=== PATIENT | female | born 1990 | race Caucasian/White ===

== ENCOUNTER 2016-08-02 21:44 | Emergency (ER) | payer OTHER ==
[2016-08-02 21:55] VITALS: BP 116/76; TEMP 97.1; BMI 20.1
[2016-08-02] MEDS ORDERED: SODIUM CHLORIDE 1,000 ML IV STA (21:55)
[2016-08-02] MEDS ORDERED: STADOL IVP STA (21:55)
[2016-08-02] MEDS ORDERED: ZOFRAN 4 MG/2 ML IVP STA (21:55)
[2016-08-02 22:05] LABS: BASOPHILS # (AUTO) 0.1 K/uL (0-0.2); BASOPHILS % (AUTO) 1.2 % (0.0-3.0); EOSINOPHILS # (AUTO) 0.4 K/ul (0.0-0.7); EOSINOPHILS % (AUTO) 6.4 % (0.0-7.0); HEMATOCRIT 43.4 % (37.0-47.0); HEMOGLOBIN 14.1 g/dl (12.0-16.0); IMMATURE GRANULOCYTE % (AUTO) 0.2 % (0.0-5.0); LYMPHOCYTES # (AUTO) 2.6 K/uL (0.60-3.4); LYMPHOCYTES % (AUTO) 43.9 (10.0-50.0); MEAN CORPUSCULAR HEMOGLOBIN 29.1 pg (27.0-31.0); MEAN CORPUSCULAR HGB CONC 32.5 (31.8-35.4); MEAN CORPUSCULAR VOLUME 89.5 fl (81.0-99.0); MONOCYTES # (AUTO) 0.6 K/uL (0.4-2.0); MONOCYTES % (AUTO) 9.5 (0-10); NEUTROPHILS # (AUTO) 2.3 K/ul (2.0-6.9); NEUTROPHILS % (AUTO) 38.8; PLATELET COUNT 150 10^3/uL (140-440); RED BLOOD COUNT 4.85 10^6/ul (4.20-5.40)
[2016-08-02 22:09] LABS: BILIRUBIN,URINE Negative (NEGATIVE); KETONES,URINE Negative (NEGATIVE); LEUKOCYTE ESTERASE ,URINE Negative (NEGATIVE); NITRITE,URINE Negative (NEGATIVE); PH,URINE 6.5 (5-9); PROTEIN,URINE Negative (NEGATIVE); URINE, BLOOD Negative (NEGATIVE)
[2016-08-02 22:12] LABS: ADD URINE MICROSCOPIC NO
[2016-08-02 22:13] LABS: URINE PREGNANCY INTERNAL QC INTERNAL QC VALID
[2016-08-02 22:22] LABS: FLU INTERNAL QC INTERNAL QC VALID; RAPID FLU A NEGATIVE (NEGATIVE); RAPID FLU B NEGATIVE (NEGATIVE)
[2016-08-02 22:26] LABS: ALBUMIN/GLOBULIN RATIO 1.29; ANION GAP 12.4; BILIRUBIN,TOTAL 0.3 mg/dL (0.00-1.20); BUN/CREATININE RATIO 20.54; CALCIUM 9.2 mg/dL (8.2-10.2); CREATININE 0.73 mg/dL (0.60-1.30); POTASSIUM 4.4 mmol/L (3.5-5.10); TOTAL PROTEIN 7.1 g/dL (6.4-8.2)
--- NOTE | 2016-08-02 22:55 | CT ---
EXAM: CT scan abdomen pelvis without contrast HISTORY: Vomiting weakness COMPARISON: None. FINDINGS: Contiguous axial images were obtained from lung bases to the symphysis pubis without cont rast utilizing 3-mm collimation. Sagittal and coronal reconstructions were imaged and reviewed.. V isualized lung bases are clear. The gallbladder is fluid filled without cholelithiasis. The liver, pancreas, spleen and adrenal glands have normal unenhanced CT appearance. The kidneys are morpholo gically normal. The abdominal aorta is normal in course and caliber. There is a small amount free f luid in the dependent pelvis . There is a normal-appearing bladder.. There is no CT evidence of ap pendicitis.. Review of bone windows reveals no evidence of lytic or blastic lesions. IMPRESSION: No acute intra-abdominal findings. Small amount free fluid dependent pelvis. No CT evidence of appendicitis.
--- NOTE | 2016-08-02 23:46 | ED.PDOC ---
General ED Provider: Dr. DANISH LARA-ER Chief Complaint: Nausea/Vomiting Stated Complaint: im throwing up and having diarrhea Time Seen by Physician: 21:50 Mode of Arrival: Walk-In Information Source: Patient Exam Limitations: No limitations Primary Care Provider: COURTNEY ANTONIOPENN [facility] Nursing and Triage Documentation Reviewed and Agree: Yes GI Complaint Exam - Vomiting/Diarrhea Complaint/Exam Onset/Duration: less than 24hrs Symptoms Are: Still present Episodes of Vomiting over last 24 Hours: 4 Episodes of Diarrhea Over Last 24 Hours: 3 Initial Severity: Mild Current Severity: Mild Character of Vomiting: Reports: Non-bilious Character of Diarrhea: Reports: Watery Aggravating: Reports: None Alleviating: Reports: None Associated Signs and Symptoms: Denies: Dizziness, Light-headedness, Melena, Hematemesis, Fever, Abdominal pain, Cramping Use of Oral Contraceptives: No Use of Depoprovera: No Compliant With Contraceptive Use: No Non-GI Risk Factors: Reports: None Surgical Obstruction Risk Factors: Reports: None Related Surgical History: Reports: None Abdominal Findings: Present: None Kussmaul Respirations Present: No Differential Diagnoses: Dehydration, Viral Gastroenteritis Review of Systems - Review Of Systems Constitutional: Reports: No symptoms Eyes: Reports: No symptoms Ears, Nose, Mouth, Throat: Reports: No symptoms Respiratory: Reports: No symptoms Cardiac: Reports: No symptoms GI: Reports: Diarrhea, Nausea, Vomiting : Reports: No symptoms Musculoskeletal: Reports: No symptoms Skin: Reports: No symptoms Neurological: Reports: No symptoms Endocrine: Reports: No symptoms Hematologic/Lymphatic: Reports: No symptoms All Other Systems: Reviewed and Negative Past Medical History - Past Medical History Endocrine: Reports: Unknown Cardiovascular: Reports: Unknown Respiratory: Reports: Unknown Hematological: Reports: Unknown Gastrointestinal: Reports: Unknown Genitourinary: Reports: Unknown Neuro/Psych: Reports: Unknown Musculoskeletal: Reports: Unknown Cancer: Reports: Unknown Last Menstrual Period: 06/17/16 on depo - Surgical History General Surgical History: Reports: Unknown - Family History Family History: Reports: Unknown - Social History Smoking Status: Current every day smoker Hx Substance Use: No Alcohol Screening: Occasionally Lives: With family - Immunizations Tetanus Shot up to Date: Yes Physical Exam - Physical Exam Appearance: Well-appearing, No pain distress, Well-nourished Eyes: [place] ENT: Ears normal, Nose normal, Oropharynx normal Neck: Supple Respiratory: Airway patent Cardiovascular: RRR GI/: Soft, Nontender, No masses, Bowel sounds normal, No Organomegaly Musculoskeletal: Normal strength, ROM intact, No edema, No calf tenderness Skin: Warm, Dry, Normal color Neurological: Sensation intact, Motor intact, Reflexes intact, Cranial nerves intact, Alert, Oriented Psychiatric: Affect appropriate Interpretation - Radiology Interpretation Radiology Interpretation By: Radiologist Radiology Results: Negative Exam Interpreted: CT Scan Re-Evaluation - Re-Evaluation Time of Re-Evaluation: 23:46 Status: Improved Vital Signs Stable: Yes Pain Level: 0 Appearance: NAD Lungs: Clear Skin: Warm and Dry Neuro: Alert and Oriented X3 CV: RRR Critical Care Note - Critical Care Note Total Time (mins): 0 Course - Course Hematology/Chemistry: 08/02/16 22:03 08/02/16 22:03 Orders, Labs, Meds: Lab Review 08/02/16 08/02/16 21:54 22:03 WBC 5.90 RBC 4.85 Hgb 14.1 Hct 43.4 MCV 89.5 MCH 29.1 MCHC 32.5 RDW Coeff of Elle 11.9 Plt Count 150 Immature Gran % (Auto) 0.2 Neut % (Auto) 38.8 Lymph % (Auto) 43.9 [place] % (Auto) 9.5 Eos % (Auto) 6.4 Baso % (Auto) 1.2 Immature Gran # (Auto) 0.0 Neut # 2.3 Lymph # 2.6 [place] # 0.6 Eos # 0.4 Baso # 0.1 Sodium 138 Potassium 4.4 Chloride 106 Carbon Dioxide 24 Anion Gap 12.4 BUN 15 Creatinine 0.73 Estimated GFR (MDRD) 98.00 BUN/Creatinine Ratio 20.54 Glucose 91 Calcium 9.2 Total Bilirubin 0.30 AST 18 ALT 16 Alkaline Phosphatase 87 Total Protein 7.1 Albumin 4.0 Globulin 3.1 Albumin/Globulin Ratio 1.29 Amylase 70 Lipase 75 Urine Color Yellow Urine Clarity Clear Urine pH 6.5 Ur Specific [place] 1.020 Urine Protein Negative Urine Glucose (UA) Negative Urine Ketones Negative Urine Blood Negative Urine Nitrite Negative Urine Bilirubin Negative Urine Urobilinogen 0.2 Ur Leukocyte Esterase Negative Urine Test Negative Influenza A (Rapid) Negative Influenza B (Rapid) Negative Orders Category Date Time Status ED IV/MEDIPORT/POWERPORT .ONCE EMERGENCY 08/02/16 21:55 Active AMYLASE Stat LAB 08/02/16 22:03 Completed CBC W/ AUTO DIFF Stat LAB 08/02/16 22:03 Completed COMPREHENSIVE METABOLIC PANEL Stat LAB 08/02/16 22:03 Completed LIPASE Stat LAB 08/02/16 22:03 Completed MOLECULAR GROUP A STREP Stat LAB 08/02/16 21:55 Results RAPID FLU A/B Stat LAB 08/02/16 21:54 Completed STREP SCREEN Stat LAB 08/02/16 21:55 Results URINALYSIS C & S IF INDICATED Stat LAB 08/02/16 22:03 Completed URINE Stat LAB 08/02/16 22:03 Completed 0.9 % Sodium Chloride [Saline Flush] MEDS 08/02/16 21:55 Ordered 1 syr IVF PRN PRN Butorphanol Tartrate [Stadol] MEDS 08/02/16 21:55 Discontinued 2 mg IVP ONCE STA Ondansetron HCl/Pf [Zofran 4 mg/2 ml] MEDS 08/02/16 21:55 Discontinued 4 mg IVP ONCE STA Sodium Chloride 0.9% [Sodium Chloride] 1,000 ml MEDS 08/02/16 21:[address] ABDOMEN/PELVIS WO CONTRAST Stat RADS 08/02/16 21:56 Completed Medications Generic Name Dose Route Start Last Admin Trade Name Freq PRN Reason Stop Dose Admin Sodium Chloride 1,000 mls @ 500 mls/hr 08/02/16 21:55 08/02/16 22:13 Sodium Chloride IV 08/02/16 23:54 500 mls/hr BOLUS STA Administration Sodium Chloride 1 syr 08/02/16 21:55 08/02/16 22:13 Saline Flush IVF 1 syr PRN PRN Administration To flush IV Discontinued Medications Generic Name Dose Route Start Last Admin Trade Name Freq PRN Reason Stop Dose Admin Butorphanol Tartrate 2 mg 08/02/16 21:55 08/02/16 22:45 Stadol IVP 08/02/16 21:56 2 mg ONCE STA Administration Ondansetron HCl 4 mg 08/02/16 21:55 08/02/16 22:45 Zofran 4 Mg/2 Ml IVP 08/02/16 21:56 4 mg ONCE STA Administration Vital Signs: Temp Pulse Resp BP Pulse Ox 08/02/16 21:45 97.1 F L 72 20 116/76 96 Departure - Departure Time of Disposition: 23:46 Disposition: HOME SELF-CARE Discharge Problem: Enteritis Instructions: Enteritis (ED) Condition: Good Pt referred to PMD for follow-up: Yes Additional Instructions: zofran 4mg q 4hrs prn #4--clear liquids--recheck in 48hrs if not better Allergies/Adverse Reactions: Allergies No Known Allergies Allergy (Verified 12/07/13 15:58) Home Medications: Ambulatory Orders Medroxyprogesterone Acetate [Depo-Provera] 150 mg IM DIRECTED 05/16/14 Disposition Discussed With: Patient
== END 2016-08-02 23:50 | disposition home or self-care (01) ==
LOC: ED 21:44
DX: K52.9 Noninfective gastroenteritis and colitis, unspecified (principal); F17.210 Nicotine dependence, cigarettes, uncomplicated
CPT/HCPCS: 36415; 80053; 81001; 81025; 82150; 83690; 85025; 87651; 87804; 87880; 96361; 96374; 96375; 99284

== ENCOUNTER 2016-09-11 16:53 | Emergency (ER) ==
[2016-09-11 16:58] VITALS: BP 134/82; TEMP 98.8; BMI 20.9
[2016-09-11] MEDS ORDERED: TYLENOL PO STA (17:12)
[2016-09-11] MEDS ORDERED: ZOFRAN ODT PO STA (17:12)
--- NOTE | 2016-09-11 17:19 | ED.PDOC ---
General ED Provider: Dr. RICCI SAN Chief Complaint: Respiratory Complaint Stated Complaint: patient c/o chills and bodyaches. states she has had a cough and nasal congestion. states a little sore throat. also c/o nausea and diarrhea. states she needs an excuse for work. Time Seen by Physician: 17:17 Mode of Arrival: Walk-In Information Source: Patient Exam Limitations: No limitations Primary Care Provider: HARJIT DICKENS Nursing and Triage Documentation Reviewed and Agree: Yes Respiratory Complaint Exam - Respiratory Complaint/Exam Onset/Duration: 2 days Symptoms Are: Still present Timing: Constant Initial Severity: Moderate Current Severity: Moderate Location: Chest Character: Reports: Non-productive cough Aggravating: Reports: URI, Weather Associated Signs and Symptoms: Reports: Dyspnea, URI Related History: Reports: Seasonal allergies History of Healthcare-Acquired Pneumonia: No Related Surgical History: Reports: None Pulmonary Embolism Risk Factors: None Cardiac Risk Factors: Reports: None Pseudomonas Risk Factors: Reports: None Tuberculosis Risk Factors: Reports: None Status Asthmaticus Risk Factors: Reports: None Home Oxygen Use: No Recent Stress Test: No Recent Echo/LV Function: No Current Antibiotic Use: No Current Asthma Medication Use: No Respiratory Distress: Mild Inadequate Respiratory Effort: No Dysphagia Present: No Stridor Present: No JVD Present: No Accessory Muscle Use: No Retractions: Not Present Diminished Breath Sounds: No Sinus Tenderness: None Grunting Respirations: No Kussmaul Respirations: No Differential Diagnoses: URI Review of Systems - Review Of Systems Constitutional: Reports: Fever Eyes: Reports: No symptoms Ears, Nose, Mouth, Throat: Reports: Nose discharge Respiratory: Reports: Cough Cardiac: Reports: No symptoms GI: Reports: No symptoms : Reports: No symptoms Musculoskeletal: Reports: No symptoms Skin: Reports: No symptoms Neurological: Reports: No symptoms Endocrine: Reports: No symptoms Hematologic/Lymphatic: Reports: No symptoms All Other Systems: Reviewed and Negative Past Medical History - Past Medical History Endocrine: Reports: Unknown Cardiovascular: Reports: Unknown Respiratory: Reports: Unknown Hematological: Reports: Unknown Gastrointestinal: Reports: Unknown Genitourinary: Reports: Unknown Neuro/Psych: Reports: Unknown Musculoskeletal: Reports: Unknown Cancer: Reports: Unknown Last Menstrual Period: 2 days ago she finished - Surgical History General Surgical History: Reports: Unknown - Family History Family History: Reports: Unknown - Social History Smoking Status: Current every day smoker Hx Substance Use: No Alcohol Screening: Occasionally Physical Exam - Physical Exam Appearance: Ill-appearing, Thin Ill-appearing: Mild Eyes: [place], EOMI, Conjunctiva clear ENT: Ears normal Neck: Supple Respiratory: Airway patent, Breath sounds clear, Breath sounds equal, Respirations nonlabored Cardiovascular: RRR, Pulses normal, No rub Musculoskeletal: Normal strength Skin: Warm, Dry Neurological: Sensation intact Psychiatric: Anxious Critical Care Note - Critical Care Note Total Time (mins): 0 Course - Course Orders, Labs, Meds: Lab Review 09/11/16 17:20 Influenza A (Rapid) Negative Influenza B (Rapid) Negative Orders Category Date Time Status FLU A & B RAPID TEST [RAPID FLU A/B] Stat LAB 09/11/16 17:20 Completed MOLECULAR GROUP A STREP Stat LAB 09/11/16 17:20 Results STREP SCREEN Stat LAB 09/11/16 17:20 Results Acetaminophen [Tylenol] MEDS 09/11/16 17:12 Discontinued 1,000 mg PO ONCE STA Ondansetron [Zofran Odt] MEDS 09/11/16 17:12 Discontinued 4 mg PO ONCE STA Medications Discontinued Medications Generic Name Dose Route Start Last Admin Trade Name Freq PRN Reason Stop Dose Admin Acetaminophen 1,000 mg 09/11/16 17:12 09/11/16 17:17 Tylenol PO 09/11/16 17:13 1,000 mg ONCE STA Administration Ondansetron HCl 4 mg 09/11/16 17:12 09/11/16 17:17 Zofran Odt PO 09/11/16 17:13 4 mg ONCE STA Administration Vital Signs: Temp Pulse Resp BP Pulse Ox 09/11/16 16:53 98.8 F 89 16 134/82 98 Departure - Departure Time of Disposition: 17:45 Disposition: HOME SELF-CARE Discharge Problem: Viral syndrome Instructions: Viral Syndrome (ED) Condition: Stable Pt referred to PMD for follow-up: Yes Additional Instructions: Push fluids Alienate Tylenol with Motrin Take medications for Nausea Prescriptions: Ondansetron HCl [Zofran Tab] 4 mg PO Q8H PRN #14 tablet PRN Reason: Nausea / Vomiting Allergies/Adverse Reactions: Allergies No Known Allergies Allergy (Verified 09/11/16 16:56) Home Medications: Ambulatory Orders Medroxyprogesterone Acetate [Depo-Provera] 150 mg IM DIRECTED 05/16/14 Ondansetron HCl [Zofran Tab] 4 mg PO Q8H PRN #14 tablet 09/11/16 Disposition Discussed With: Patient
[2016-09-11 17:42] LABS: FLU INTERNAL QC INTERNAL QC VALID; RAPID FLU A NEGATIVE (NEGATIVE); RAPID FLU B NEGATIVE (NEGATIVE)
== END 2016-09-11 18:07 | disposition home or self-care (01) ==
LOC: ED 16:53
DX: B34.9 Viral infection, unspecified (principal); F17.210 Nicotine dependence, cigarettes, uncomplicated
CPT/HCPCS: 87651; 87804; 87880; 99283

== ENCOUNTER 2016-09-22 04:31 | Emergency (ER) ==
[2016-09-22 04:39] VITALS: BP 132/83; TEMP 99; BMI 19.3
[2016-09-22] MEDS ORDERED: IMITREX SUBCUT STA (05:24)
[2016-09-22] MEDS ORDERED: ZOFRAN ODT PO STA (05:24)
[2016-09-22] MEDS ORDERED: TORADOL IM STA (05:24)
--- NOTE | 2016-09-22 06:33 | ED.PDOC ---
General ED Provider: Dr. RICCI SAN Chief Complaint: Headache Stated Complaint: Patient is a 26 year old female who comes to the Er with Migrane heaches for one day with nausea and light. These are similar symtoms to the past. Time Seen by Physician: 04:45 Mode of Arrival: Walk-In Information Source: Patient, Family Exam Limitations: No limitations Primary Care Provider: HARJIT DICKENS Nursing and Triage Documentation Reviewed and Agree: Yes Neurological Complaint Exam - Headache Complaint/Exam Onset: Sudden Duration: 1 days Symptoms Are: Still present Timing: Constant Initial Severity: Moderate Current Severity: Severe Location: Right, Left, Temporal Character: Reports: Throbbing, Typical headache Aggravating: Reports: Bright lights Alleviating: Reports: None Associated Signs and Symptoms: Reports: Nausea. Denies: Dizziness, Seizure, Vomiting, Sinus pressure, Fever, Neck pain, Neck stiffness, Decreased LOC, Visual changes Related History: Reports: Similar episode Related Surgical History: Reports: None SAH Risk Factors: Reports: None Meningitis Risk Factors: Reports: None SDH Risk Factors: Reports: None Temporal Arteritis Risk Factors: Reports: None Normal Head CT Within Last 12 Months: Yes Papilledema Present: No Temporal Artery Tenderness: Present: None Sinus Tenderness: Present: None TMJ Tenderness: Present: None Glascow Coma Scale (see protocol): 15 Meningeal Signs Positive: No Pain on Passive Flexion-Positive Kernig's: Yes ROM Limited In: No Limitiations Focal Weakness: Present: None Focal Sensory Loss: Present: None Gait: Normal Nystagmus Present: No Gag Reflex Present: No [id number]: Normal Findings Romberg Test Positive: No Babinski Sign: Negative Right, Negative Left Head Picture: 1 - headache Differential Diagnoses: Migraine, Tension Headache Review of Systems - Review Of Systems Constitutional: Reports: No symptoms Eyes: Reports: Photophobia GI: Reports: Nausea, Poor appetite Neurological: Reports: Headache All Other Systems: Reviewed and Negative Past Medical History - Past Medical History Endocrine: Reports: None Cardiovascular: Reports: None Respiratory: Reports: None Hematological: Reports: None Gastrointestinal: Reports: None Genitourinary: Reports: None Neuro/Psych: Reports: Migraine Musculoskeletal: Reports: None Cancer: Reports: None Last Menstrual Period: 2 WEEKS AGO - Surgical History General Surgical History: Reports: None - Family History Family History: Reports: None - Social History Smoking Status: Current every day smoker, Heavy tobacco smoker Hx Substance Use: No Alcohol Screening: None - Immunizations Tetanus Shot up to Date: Yes Physical Exam - Physical Exam Appearance: Well-appearing, No pain distress, Well-nourished Ill-appearing: Mild Pain Distress: Mild Eyes: [place], EOMI, Conjunctiva clear ENT: Ears normal, Nose normal, Oropharynx normal Neck: Supple Respiratory: Airway patent, Breath sounds clear, Breath sounds equal, Respirations nonlabored Cardiovascular: RRR, Pulses normal, No rub, No murmur GI/: Soft, Nontender, No masses, Bowel sounds normal, No Organomegaly Musculoskeletal: Normal strength, ROM intact, No edema, No calf tenderness Skin: Warm, Dry, Normal color Neurological: Sensation intact, Motor intact, Reflexes intact, Cranial nerves intact, Alert, Oriented Psychiatric: Affect appropriate, Mood appropriate Re-Evaluation - Re-Evaluation Time of Re-Evaluation: 06:30 Status: Improved Critical Care Note - Critical Care Note Total Time (mins): 0 Course - Course Orders, Labs, Meds: Orders Category Date Time Status Ketorolac Tromethamine [Toradol] MEDS 09/22/16 05:24 Discontinued 60 mg IM ONCE STA Ondansetron [Zofran Odt] MEDS 09/22/16 05:24 Discontinued 4 mg PO ONCE STA Sumatriptan Succinate [Imitrex] MEDS 09/22/16 05:24 Discontinued 6 mg SUBCUT ONCE STA Medications Discontinued Medications Generic Name Dose Route Start Last Admin Trade Name Freq PRN Reason Stop Dose Admin Ketorolac Tromethamine 60 mg 09/22/16 05:24 09/22/16 05:36 Toradol IM 09/22/16 05:25 60 mg ONCE STA Administration Ondansetron HCl 4 mg 09/22/16 05:24 09/22/16 05:29 Zofran Odt PO 09/22/16 05:25 4 mg ONCE STA Administration Sumatriptan Succinate 6 mg 09/22/16 05:24 09/22/16 05:33 Imitrex SUBCUT 09/22/16 05:25 6 mg ONCE STA Administration Vital Signs: Temp Pulse Resp BP Pulse Ox 09/22/16 04:31 99 F 63 18 132/83 98 Departure - Departure Time of Disposition: 06:30 Disposition: HOME SELF-CARE Discharge Problem: Headache Instructions: Migraine Headache (ED) Condition: Fair Pt referred to PMD for follow-up: Yes Additional Instructions: Take medications as prescribed Rest Follow up with PCP in 3 days. Prescriptions: Butalb/Acetaminophen/Caffeine [Fioricet] 1 each PO TID PRN #15 tablet PRN Reason: Migrane headache Allergies/Adverse Reactions: Allergies No Known Allergies Allergy (Verified 09/26/16 11:27) Home Medications: Ambulatory Orders Butalb/Acetaminophen/Caffeine [Fioricet] 1 each PO TID PRN #15 tablet 09/22/16 Disposition Discussed With: Patient, Family
== END 2016-09-22 06:37 | disposition home or self-care (01) ==
LOC: ED 04:31
DX: G43.909 Migraine, unspecified, not intractable, without status migrainosus (principal); F17.210 Nicotine dependence, cigarettes, uncomplicated
CPT/HCPCS: 96372; 99283

== ENCOUNTER 2016-09-24 15:29 | Outpatient (CLI) | payer OTHER ==
[2013-01-12 20:47] VITALS: TEMP 96.8
[2016-09-24 15:51] LABS: BASOPHILS # (AUTO) 0.1 K/uL (0-0.2); BASOPHILS % (AUTO) 0.6 % (0.0-3.0); EOSINOPHILS # (AUTO) 0.1 K/ul (0.0-0.7); EOSINOPHILS % (AUTO) 0.9 % (0.0-7.0); HEMATOCRIT 41.3 % (37.0-47.0); HEMOGLOBIN 14.5 g/dl (12.0-16.0); IMMATURE GRANULOCYTE % (AUTO) 0.4 % (0.0-5.0); LYMPHOCYTES # (AUTO) 1.4 K/uL (0.60-3.4); LYMPHOCYTES % (AUTO) 12.4 (10.0-50.0); MEAN CORPUSCULAR HEMOGLOBIN 29.9 pg (27.0-31.0); MEAN CORPUSCULAR HGB CONC 35.1 (31.8-35.4); MEAN CORPUSCULAR VOLUME 85.2 fl (81.0-99.0); MONOCYTES # (AUTO) 1.1 K/uL (0.4-2.0); MONOCYTES % (AUTO) 9.4 (0-10); NEUTROPHILS # (AUTO) 8.7 K/ul (2.0-6.9); NEUTROPHILS % (AUTO) 76.3; PLATELET COUNT 187 10^3/uL (140-440); RED BLOOD COUNT 4.85 10^6/ul (4.20-5.40)
[2016-09-24 16:08] LABS: ALBUMIN 4.2 g/dL (3.4-5.0); ALBUMIN/GLOBULIN RATIO 1.35; ANION GAP 14.1; BILIRUBIN,TOTAL 0.96 mg/dL (0.00-1.20); BUN/CREATININE RATIO 11.53; CALCIUM 9.2 mg/dL (8.2-10.2); CREATININE 1.3 mg/dL (0.60-1.30); POTASSIUM 4.1 mmol/L (3.5-5.10); TOTAL PROTEIN 7.3 g/dL (6.4-8.2)
[2016-09-24 16:13] LABS: BILIRUBIN,URINE Negative (NEGATIVE); KETONES,URINE Negative (NEGATIVE); LEUKOCYTE ESTERASE ,URINE Negative (NEGATIVE); NITRITE,URINE Negative (NEGATIVE); PROTEIN,URINE 3+ (NEGATIVE); URINE, BLOOD Trace-intact (NEGATIVE)
[2016-09-24 16:14] LABS: ADD URINE MICROSCOPIC YES
--- NOTE | 2016-09-24 16:16 | DI ---
EXAM: Single view the abdomen. History: Nausea and vomiting. Findings: Nonspecific but nonobstructive bowel gas pattern. No free intraperitoneal air. Moderate scattered colonic stool. No acute osseous abnormalities. Facet hypertrophy within the lower lumbar spine. Impression: No acute radiographic findings within the abdomen. Moderate colonic stool.
== END 2016-09-24 15:30 | disposition home or self-care (01) ==
LOC: LAB 15:29
PROVIDERS: ATTEND Nurse Practitioner Family
DX: R11.2 Nausea with vomiting, unspecified (principal); K59.00 Constipation, unspecified
CPT/HCPCS: 36415; 80053; 81001; 82150; 83690; 85025

== ENCOUNTER 2016-09-26 11:22 | Emergency (ER) | payer OTHER ==
[2016-09-26 11:22] VITALS: BMI 19.3
[2016-09-26 11:29] VITALS: BP 124/84; TEMP 97.5
[2016-09-26 11:56] LABS: BASOPHILS # (AUTO) 0.1 K/uL (0-0.2); BASOPHILS % (AUTO) 0.7 % (0.0-3.0); EOSINOPHILS # (AUTO) 0.3 K/ul (0.0-0.7); EOSINOPHILS % (AUTO) 3.3 % (0.0-7.0); HEMATOCRIT 39.4 % (37.0-47.0); HEMOGLOBIN 13.7 g/dl (12.0-16.0); IMMATURE GRANULOCYTE % (AUTO) 0.2 % (0.0-5.0); LYMPHOCYTES # (AUTO) 1.7 K/uL (0.60-3.4); LYMPHOCYTES % (AUTO) 20.3 (10.0-50.0); MEAN CORPUSCULAR HEMOGLOBIN 29.5 pg (27.0-31.0); MEAN CORPUSCULAR HGB CONC 34.8 (31.8-35.4); MEAN CORPUSCULAR VOLUME 84.7 fl (81.0-99.0); MONOCYTES # (AUTO) 0.6 K/uL (0.4-2.0); MONOCYTES % (AUTO) 7.6 (0-10); NEUTROPHILS # (AUTO) 5.7 K/ul (2.0-6.9); NEUTROPHILS % (AUTO) 67.9; PLATELET COUNT 169 10^3/uL (140-440); RED BLOOD COUNT 4.65 10^6/ul (4.20-5.40); WHITE BLOOD COUNT 8.41 K/ul (4.6-10.2)
[2016-09-26 12:00] LABS: BILIRUBIN,URINE Negative (NEGATIVE); KETONES,URINE Negative (NEGATIVE); LEUKOCYTE ESTERASE ,URINE Negative (NEGATIVE); NITRITE,URINE Negative (NEGATIVE); PROTEIN,URINE 1+ (NEGATIVE); URINE, BLOOD Negative (NEGATIVE)
[2016-09-26 12:01] LABS: ADD URINE MICROSCOPIC YES
[2016-09-26 12:02] LABS: URINE PREGNANCY INTERNAL QC INTERNAL QC VALID
[2016-09-26 12:17] LABS: ALBUMIN 3.8 g/dL (3.4-5.0); ALBUMIN/GLOBULIN RATIO 1.19; ANION GAP 13.8; BILIRUBIN,TOTAL 0.38 mg/dL (0.00-1.20); BUN/CREATININE RATIO 11.65; CREATININE 1.63 mg/dL (0.60-1.30); POTASSIUM 3.8 mmol/L (3.5-5.10)
--- NOTE | 2016-09-26 12:20 | ED.PDOC ---
General ED Provider: Dr. HAWA ANDRADE Chief Complaint: Abdominal Pain Stated Complaint: abdominal pain Time Seen by Physician: 11:23 Mode of Arrival: Walk-In Information Source: Patient, Family Exam Limitations: No limitations Primary Care Provider: HARJIT DICKENS Nursing and Triage Documentation Reviewed and Agree: Yes GI Complaint Exam - Abdominal Pain Complaint/Exam Onset: Gradual Symptoms Are: Still present Timing: Constant Initial Severity: Moderate Current Severity: Moderate Character: Reports: Dull Aggravating: Reports: None Alleviating: Reports: None Associated Signs and Symptoms: Reports: Constipation. Denies: Diaphoresis, Fever, Cough, Chest pain, Dizziness, Back pain, Blood in stool, Dysuria, Urinary frequency, Decreased urine output, Decreased appetite, Vaginal bleeding , Vaginal discharge, Nausea, Vomiting, Diarrhea, Sore throat, Decreased activity AAA Risk Factors: Reports: None Cardiac Risk Factors: Reports: None Ectopic Risk Factors: Reports: None Ovarian Torsion Risk Factors: Reports: None Surgical Obstruction Risk Factors: Reports: None Related Surgical History: Reports: None Abdominal Findings: Present: None Review of Systems - Review Of Systems Constitutional: Reports: No symptoms Eyes: Reports: No symptoms Ears, Nose, Mouth, Throat: Reports: No symptoms Respiratory: Reports: No symptoms Cardiac: Reports: No symptoms GI: Reports: Abdominal pain, Constipated : Reports: No symptoms Musculoskeletal: Reports: No symptoms Skin: Reports: No symptoms Neurological: Reports: No symptoms Endocrine: Reports: No symptoms Hematologic/Lymphatic: Reports: No symptoms All Other Systems: Reviewed and Negative Past Medical History - Past Medical History Endocrine: Reports: Unknown Cardiovascular: Reports: Unknown Respiratory: Reports: Unknown Hematological: Reports: Unknown Gastrointestinal: Reports: Unknown Genitourinary: Reports: Unknown Neuro/Psych: Reports: Unknown Musculoskeletal: Reports: Unknown Cancer: Reports: Unknown Last Menstrual Period: LAST MONTH - Surgical History General Surgical History: Reports: Unknown - Family History Family History: Reports: Unknown - Social History Smoking Status: Current every day smoker, Heavy tobacco smoker Hx Substance Use: No Alcohol Screening: None Physical Exam - Physical Exam Appearance: Well-appearing, No pain distress, Well-nourished Eyes: [place], EOMI, Conjunctiva clear ENT: Ears normal, Nose normal, Oropharynx normal Respiratory: Airway patent, Breath sounds clear, Breath sounds equal, Respirations nonlabored Cardiovascular: RRR, Pulses normal, No rub, No murmur GI/: Soft, Nontender, No masses, Bowel sounds normal, No Organomegaly Musculoskeletal: Normal strength, ROM intact, No edema, No calf tenderness Skin: Warm, Dry, Normal color Neurological: Sensation intact, Motor intact, Reflexes intact, Cranial nerves intact, Alert, Oriented Psychiatric: Affect appropriate, Mood appropriate Interpretation - Radiology Interpretation Radiology Interpretation By: Radiologist Critical Care Note - Critical Care Note Total Time (mins): 0 Course - Course Hematology/Chemistry: 09/26/16 11:25 Orders, Labs, Meds: Lab Review 09/26/16 11:25 WBC 8.41 RBC 4.65 Hgb 13.7 Hct 39.4 MCV 84.7 MCH 29.5 MCHC 34.8 RDW Coeff of Elle 11.9 Plt Count 169 Immature Gran % (Auto) 0.2 Neut % (Auto) 67.9 Lymph % (Auto) 20.3 [place] % (Auto) 7.6 Eos % (Auto) 3.3 Baso % (Auto) 0.7 Immature Gran # (Auto) 0.0 Neut # 5.7 Lymph # 1.7 [place] # 0.6 Eos # 0.3 Baso # 0.1 Urine Color Yellow Urine Clarity Clear Urine pH 6.0 Ur Specific [place] 1.010 Urine Protein 1+ Urine Glucose (UA) Negative Urine Ketones Negative Urine Blood Negative Urine Nitrite Negative Urine Bilirubin Negative Urine Urobilinogen 0.2 Ur Leukocyte Esterase Negative Ur Squamous Epith Cells Not present Urine Mucus Trace Urine Test Negative Orders Category Date Time Status CBC W/ AUTO DIFF Stat LAB 09/26/16 11:25 Completed COMPREHENSIVE METABOLIC PANEL Stat LAB 09/26/16 11:25 Received URINALYSIS C & S IF INDICATED Stat LAB 09/26/16 11:25 Completed URINE Stat LAB 09/26/16 11:[address] ABDOMEN/PELVIS WO CONTRAST Stat RADS 09/26/16 11:31 Taken Vital Signs: Temp Pulse Resp BP Pulse Ox 09/26/16 11:22 97.5 F L 55 L 18 124/84 98 Departure - Departure Time of Disposition: 13:00 Disposition: HOME SELF-CARE Discharge Problem: Abdominal pain Constipation Qualifiers: Constipation type: unspecified constipation type Qualifier Code: (K59.00) Constipation, unspecified Proteinuria Qualifiers: Proteinuria type: unspecified Qualifier Code: (R80.9) Proteinuria, unspecified Instructions: Constipation (ED), Acute Abdominal Pain (ED), Abdominal Pain (ED) Condition: Good Pt referred to PMD for follow-up: No Additional Instructions: Please call your Family Physician as soon as possible to schedule a follow-up appointment.proteinuria discussed in detail Allergies/Adverse Reactions: Allergies No Known Allergies Allergy (Verified 09/26/16 11:27) Home Medications: Ambulatory Orders Butalb/Acetaminophen/Caffeine [Fioricet] 1 each PO TID PRN #15 tablet 09/22/16
--- NOTE | 2016-09-26 12:35 | CT ---
EXAM: CT abdomen pelvis without contrast HISTORY: Abdominal pain COMPARISON: 08/02/2016 TECHNIQUE: CT abdomen pelvis performed without intravenous contrast. Coronal and sagittal reformat reny images obtained. FINDINGS: Lung bases clear. No free air. No acute abnormalities of the bones. There is mild left bryant curvature thoracolumbar spine. Heart normal in size. Evaluation organ parenchyma limited with out contrast. Liver appears normal. Gallbladder appears normal. Pancreas appears normal. Spleen appears normal. Adrenals appear normal. No hydronephrosis or nephrolithiasis. No calculi visualiz ed in normal course of the ureters, noting ureters difficult to trace. Bladder unremarkable. Uteru s unremarkable. Small free fluid in the cul-de-sac. Aorta normal in caliber. Stomach appears norm al. No dilated loops small bowel. 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 Appendix appears normal. Mild fecal retention right a nd transverse colon. Possible prominent pelvic veins. IMPRESSION: 1. No acute inflammatory process identified in the abdomen pelvis. 2. Mild fecal retention right and transverse colon. 3. 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 4. Small free fluid in the cul-de-sac, nonspecific and may be physiologic. 5. Possible prominent pelvic veins, a questionable finding that can be seen in pelvic congestion sy ndrome.
== END 2016-09-26 14:19 | disposition home or self-care (01) ==
LOC: ED 11:22
DX: K59.00 Constipation, unspecified (principal); R80.9 Proteinuria, unspecified; F17.210 Nicotine dependence, cigarettes, uncomplicated
CPT/HCPCS: 36415; 80053; 81001; 81025; 85025; 87651; 87880; 99283

== ENCOUNTER 2016-09-27 14:05 | Outpatient (CLI) ==
[2013-01-12 20:47] VITALS: TEMP 96.8
[2016-09-26 11:22] VITALS: BMI 19.3
[2016-09-27 14:40] LABS: ALBUMIN 4.2 g/dL (3.4-5.0); ALBUMIN/GLOBULIN RATIO 1.27; ANION GAP 14.5; BILIRUBIN,TOTAL 0.46 mg/dL (0.00-1.20); BUN/CREATININE RATIO 8.88; CALCIUM 9.3 mg/dL (8.2-10.2); CREATININE 1.35 mg/dL (0.60-1.30); POTASSIUM 3.5 mmol/L (3.5-5.10); TOTAL PROTEIN 7.5 g/dL (6.4-8.2)
== END 2016-09-27 14:06 | disposition home or self-care (01) ==
LOC: LAB 14:05
PROVIDERS: ATTEND Nurse Practitioner Family
DX: R79.9 Abnormal finding of blood chemistry, unspecified (principal); R79.89 Other specified abnormal findings of blood chemistry; R94.4 Abnormal results of kidney function studies
CPT/HCPCS: 36415; 80053

== ENCOUNTER 2016-12-27 03:36 | Emergency (ER) | payer OTHER ==
[2016-12-27 03:36] VITALS: BMI 19.3
[2016-12-27 03:53] VITALS: BP 155/87; TEMP 100
--- NOTE | 2016-12-27 04:21 | ED.PDOC ---
General ED Provider: Dr. DANISH LARA-ER Chief Complaint: Cough Stated Complaint: my throat is sore and i am couging Time Seen by Physician: 04:19 Mode of Arrival: Walk-In Information Source: Patient Exam Limitations: No limitations [facility] T[facility] Documentation Reviewed and Agree: Yes EENT Complaint Exam - Throat Complaint/Exam Onset/Duration: 24hrs Initial Severity: Mild Current Severity: None Alleviating: Reports: None Associated Signs and Symptoms: Reports: Cough. Denies: Fever, Dysphagia, Drooling, Foreign body sensation, Chills, Wheezing, Hoarseness, Sinus discomfort , Nasal congestion, Difficulty breathing, Lethargy, Irritability, Decreased activity, Vomiting, Diarrhea, Decreased hearing, Ear drainage Uvula Midline: Yes Sania-tonsillar Fluctuence: No Scarlatinaform Rash Present: No Lesions: Present: Lip Exanthem: Present: Pharynx Stridor Present: No Sinus Tenderness Present: No Tonsillar Hypertrophy Present: No Tonsillar Exudate Present: No Sania-tonsillar Swelling Present: No Splenomegaly Present: No Review of Systems - Review Of Systems Constitutional: Reports: No symptoms Eyes: Reports: No symptoms Ears, Nose, Mouth, Throat: Reports: Throat pain Respiratory: Reports: Cough Cardiac: Reports: No symptoms GI: Reports: No symptoms : Reports: No symptoms Musculoskeletal: Reports: No symptoms Skin: Reports: No symptoms Neurological: Reports: No symptoms Endocrine: Reports: No symptoms Hematologic/Lymphatic: Reports: No symptoms All Other Systems: Reviewed and Negative Past Medical History - Past Medical History Previously Healthy: Yes Endocrine: Reports: Unknown Cardiovascular: Reports: Unknown Respiratory: Reports: Unknown Hematological: Reports: Unknown Gastrointestinal: Reports: Unknown Genitourinary: Reports: Unknown Neuro/Psych: Reports: Unknown Musculoskeletal: Reports: Unknown Cancer: Reports: Unknown Last Menstrual Period: 11/15/16 - Surgical History General Surgical History: Reports: Unknown - Family History Family History: Reports: Unknown - Social History Smoking Status: Current every day smoker, Heavy tobacco smoker Hx Substance Use: No Alcohol Screening: None Lives: With family - Immunizations Tetanus Shot up to Date: Yes Physical Exam - Physical Exam Appearance: Well-appearing, No pain distress, Well-nourished Eyes: [place], EOMI, Conjunctiva clear ENT: Ears normal, Nose normal, Erythema Neck: Supple Respiratory: Airway patent, Breath sounds clear, Breath sounds equal, Respirations nonlabored Cardiovascular: RRR, Pulses normal, No rub, No murmur GI/: Soft, Nontender, No masses, Bowel sounds normal, No Organomegaly Musculoskeletal: Normal strength, ROM intact, No edema, No calf tenderness Skin: Warm, Dry, Normal color Neurological: Sensation intact, Motor intact, Reflexes intact, Cranial nerves intact, Alert, Oriented Psychiatric: Affect appropriate, Mood appropriate Critical Care Note - Critical Care Note Total Time (mins): 0 Course - Course Orders, Labs, Meds: Orders Category Date Time Status MOLECULAR GROUP A STREP Stat LAB 12/27/16 03:55 Results STREP SCREEN Stat LAB 12/27/16 03:55 Results Vital Signs: Temp Pulse Resp BP Pulse Ox 12/27/16 03:45 100 F H 86 20 155/87 H 99 Departure - Departure Time of Disposition: 04:20 Disposition: HOME SELF-CARE Discharge Problem: Pharyngitis Qualifiers: Pharyngitis/tonsillitis etiology: unspecified etiology Qualifier Code: (J02.9) Acute pharyngitis, unspecified Instructions: Pharyngitis (ED) Condition: Good Pt referred to PMD for follow-up: Yes Additional Instructions: augmentn 875mg bid x 7days-=-f/u wth pcp if not better in 2 days Allergies/Adverse Reactions: Allergies No Known Allergies Allergy (Verified 12/27/16 03:52) Home Medications: Ambulatory Orders 1 [No Reported Medications] 12/27/16 Disposition Discussed With: Patient
== END 2016-12-27 04:27 | disposition home or self-care (01) ==
LOC: ED 03:36
DX: J02.9 Acute pharyngitis, unspecified (principal); R05 Cough; F17.210 Nicotine dependence, cigarettes, uncomplicated
CPT/HCPCS: 87651; 87880; 99283

== ENCOUNTER 2017-01-01 12:23 | Emergency (ER) | payer OTHER ==
[2017-01-01 12:23] VITALS: BMI 19.3
[2017-01-01 12:27] VITALS: BP 116/72; TEMP 100
--- NOTE | 2017-01-01 12:38 | ED.PDOC ---
General ED Provider: Dr. RICCI SAN Chief Complaint: Headache Stated Complaint: has been sick with sinus infection, woke up this am with migraine and fever Time Seen by Physician: 12:40 Mode of Arrival: Walk-In Information Source: Patient [facility] and Triage Documentation Reviewed and Agree: Yes Review of Systems - Review Of Systems Constitutional: Reports: No symptoms Eyes: Reports: Photophobia Ears, Nose, Mouth, Throat: Reports: No symptoms Respiratory: Reports: No symptoms Cardiac: Reports: No symptoms GI: Reports: No symptoms : Reports: No symptoms Musculoskeletal: Reports: No symptoms Skin: Reports: No symptoms Neurological: Reports: Headache Endocrine: Reports: No symptoms Hematologic/Lymphatic: Reports: No symptoms All Other Systems: Reviewed and Negative Past Medical History - Past Medical History Previously Healthy: Yes Endocrine: Reports: None Cardiovascular: Reports: None Respiratory: Reports: None Hematological: Reports: None Gastrointestinal: Reports: None Genitourinary: Reports: None Neuro/Psych: Reports: Migraine Musculoskeletal: Reports: None Cancer: Reports: None Last Menstrual Period: now - Surgical History General Surgical History: Reports: None - Family History Family History: Reports: Unknown - Social History Smoking Status: Current every day smoker, Heavy tobacco smoker Hx Substance Use: No Alcohol Screening: None Physical Exam - Physical Exam Appearance: Well-appearing, Ill-appearing, Well-nourished Ill-appearing: Moderate Pain Distress: Severe Eyes: [place], EOMI, Conjunctiva clear ENT: Ears normal, Nose normal, Oropharynx normal Neck: Supple Respiratory: Airway patent, Breath sounds clear, Breath sounds equal, Respirations nonlabored Cardiovascular: RRR, Pulses normal, No rub, No murmur GI/: Soft, Nontender, No masses, Bowel sounds normal, No Organomegaly Musculoskeletal: Normal strength, ROM intact, No edema, No calf tenderness Skin: Warm, Dry, Normal color Neurological: Sensation intact, Motor intact, Reflexes intact, Cranial nerves intact, Alert, Oriented Psychiatric: Anxious Re-Evaluation - Re-Evaluation Time of Re-Evaluation: 13:36 Status: Improved Pain Level: 3 Critical Care Note - Critical Care Note Total Time (mins): 0 Course - Course Orders, Labs, Meds: Orders Category Date Time Status Ketorolac Tromethamine [Toradol] MEDS 01/01/17 12:42 Discontinued 60 mg IM ONCE STA Ondansetron HCl/Pf [Zofran 4 mg/2 ml] MEDS 01/01/17 12:42 Discontinued 4 mg IM ONCE STA Sumatriptan Succinate [Imitrex] MEDS 01/01/17 12:42 Discontinued 6 mg SUBCUT ONCE STA Medications Discontinued Medications Generic Name Dose Route Start Last Admin Trade Name Freq PRN Reason Stop Dose Admin Ketorolac Tromethamine 60 mg 01/01/17 12:42 01/01/17 13:02 Toradol IM 01/01/17 12:43 60 mg ONCE STA Administration Ondansetron HCl 4 mg 01/01/17 12:42 01/01/17 13:01 Zofran 4 Mg/2 Ml IM 01/01/17 12:43 4 mg ONCE STA Administration Sumatriptan Succinate 6 mg 01/01/17 12:42 01/01/17 13:00 Imitrex SUBCUT 01/01/17 12:43 6 mg ONCE STA Administration Vital Signs: Temp Pulse Resp BP Pulse Ox 01/01/17 12:23 100 F H 66 18 116/72 97 Departure - Departure Time of Disposition: 13:36 Disposition: HOME SELF-CARE Discharge Problem: Headache Instructions: Acute Headache (ED) Condition: Good Pt referred to PMD for follow-up: Yes Additional Instructions: Follow up with PCP in 3 days Take medications as prescribed Get you prescription for Antibiotics filled today. Prescriptions: Butalb/Acetaminophen/Caffeine [Fioricet] 1 each PO TID PRN #15 tablet PRN Reason: headaches Allergies/Adverse Reactions: Allergies No Known Allergies Allergy (Verified 01/01/17 12:27) Home Medications: Ambulatory Orders Butalb/Acetaminophen/Caffeine [Fioricet] 1 each PO TID PRN #15 tablet 01/01/17
[2017-01-01] MEDS ORDERED: TORADOL IM STA (12:42)
[2017-01-01] MEDS ORDERED: ZOFRAN 4 MG/2 ML IM STA (12:42)
[2017-01-01] MEDS ORDERED: IMITREX SUBCUT STA (12:42)
== END 2017-01-01 14:06 | disposition home or self-care (01) ==
LOC: ED 12:23
DX: R51 Headache (principal); R50.9 Fever, unspecified; F17.210 Nicotine dependence, cigarettes, uncomplicated
CPT/HCPCS: 96372; 99282

== ENCOUNTER 2017-01-11 16:15 | Outpatient (CLI) ==
[2013-01-12 20:47] VITALS: TEMP 96.8
[2017-01-11 16:28] LABS: BILIRUBIN,URINE Negative (NEGATIVE); KETONES,URINE Negative (NEGATIVE); LEUKOCYTE ESTERASE ,URINE Negative (NEGATIVE); NITRITE,URINE Negative (NEGATIVE); PH,URINE 6.5 (5-9); PROTEIN,URINE Negative (NEGATIVE); URINE, BLOOD Trace-lysed (NEGATIVE)
[2017-01-11 16:30] LABS: ADD URINE MICROSCOPIC YES; BACTERIA,URINE TRACE (NOT PRESENT)
== END 2017-01-11 16:16 | disposition home or self-care (01) ==
LOC: LAB 16:15
PROVIDERS: ATTEND Nurse Practitioner Family
DX: N89.8 Other specified noninflammatory disorders of vagina (principal); Z20.2 Contact with and (suspected) exposure to infections with a predominantly sexual mode of transmission
CPT/HCPCS: 81001; 87800

== ENCOUNTER 2017-04-24 11:58 | Emergency (ER) ==
[2017-04-24 11:59] VITALS: BMI 19.3
[2017-04-24 12:05] VITALS: BP 131/90; TEMP 97.6
--- NOTE | 2017-04-24 12:19 | ED.PDOC ---
General ED Provider: Dr. DANISH LARA-ER Chief Complaint: Respiratory Complaint Stated Complaint: my nose is running and i am coughing--i am not running a fever Time Seen by Physician: 11:55 Mode of Arrival: Walk-In Information Source: Patient, Family Exam Limitations: No limitations Primary Care Provider: HARJIT DICKENS Nursing and Triage Documentation Reviewed and Agree: Yes Respiratory Complaint Exam - Respiratory Complaint/Exam Onset/Duration: 2 days Symptoms Are: Still present Timing: Intermittent Initial Severity: Mild Current Severity: Mild Location: Nose Character: Reports: Non-productive cough Aggravating: Reports: URI Alleviating: Reports: Spontaneous resolution Associated Signs and Symptoms: Reports: URI, Nasal congestion. Denies: Rapid breathing, Dyspnea, Fever, Chills, Chest pain, Pleuritic chest pain, Wheezing, Hemoptysis, Dizziness, Calf pain, Calf swelling, Edema, Hoarseness, Sinus discomfort, Vomiting, Sore throat, Weight loss, Decreased oral intake, Increased thirst, Increased appetite, Increased urination History of Healthcare-Acquired Pneumonia: No Related Surgical History: Reports: None Tuberculosis Risk Factors: Reports: None Home Oxygen Use: No Recent Stress Test: No Recent Echo/LV Function: No Current Antibiotic Use: No Current Asthma Medication Use: No Respiratory Distress: None Inadequate Respiratory Effort: No Dysphagia Present: No Stridor Present: No JVD Present: No Accessory Muscle Use: No Retractions: Not Present Diminished Breath Sounds: No Sinus Tenderness: None Grunting Respirations: No Kussmaul Respirations: No Differential Diagnoses: Sinusitis, URI Review of Systems - Review Of Systems Constitutional: Reports: No symptoms Eyes: Reports: No symptoms Ears, Nose, Mouth, Throat: Reports: Nose discharge Respiratory: Reports: Cough Cardiac: Reports: No symptoms GI: Reports: No symptoms : Reports: No symptoms Musculoskeletal: Reports: No symptoms Skin: Reports: No symptoms Neurological: Reports: No symptoms Endocrine: Reports: No symptoms Hematologic/Lymphatic: Reports: No symptoms All Other Systems: Reviewed and Negative Past Medical History - Past Medical History Previously Healthy: Yes Endocrine: Reports: None Cardiovascular: Reports: None Respiratory: Reports: None Hematological: Reports: None Gastrointestinal: Reports: None Genitourinary: Reports: None Neuro/Psych: Reports: Migraine Musculoskeletal: Reports: None Cancer: Reports: None Last Menstrual Period: now - Surgical History General Surgical History: Reports: None - Family History Family History: Reports: Unknown - Social History Smoking Status: Current every day smoker, Heavy tobacco smoker Hx Substance Use: No Alcohol Screening: None Lives: With family Physical Exam - Physical Exam Appearance: Well-appearing, No pain distress, Well-nourished Eyes: [place], EOMI, Conjunctiva clear ENT: Ears normal, Nose normal, Oropharynx normal, Rhinorrhea Neck: Supple Respiratory: Airway patent, Breath sounds clear, Breath sounds equal, Respirations nonlabored Cardiovascular: RRR GI/: Soft, Nontender, No masses, Bowel sounds normal, No Organomegaly Musculoskeletal: Normal strength, ROM intact, No edema, No calf tenderness Skin: Warm, Dry, Normal color Neurological: Sensation intact, Motor intact, Reflexes intact, Cranial nerves intact, Alert, Oriented Psychiatric: Affect appropriate, Mood appropriate Critical Care Note - Critical Care Note Total Time (mins): 0 Course - Course Orders, Labs, Meds: Orders Category Date Time Status RAPID FLU A/B Stat LAB 04/24/17 12:12 Ordered STREP SCREEN Stat LAB 04/24/17 12:12 Ordered Vital Signs: Temp Pulse Resp BP Pulse Ox 04/24/17 11:59 97.6 F 60 20 131/90 97 Departure - Departure Time of Disposition: 12:19 Disposition: HOME SELF-CARE Discharge Problem: Sinusitis Qualifiers: Sinusitis location: other Chronicity: acute Recurrence: non-recurrent Qualified Code(s): J01.80 - Other acute sinusitis Instructions: Sinusitis (ED) Condition: Good Pt referred to PMD for follow-up: Yes Additional Instructions: zpack---flonase 1puff each nostril bid ---tessalon perles 200mg tid prn cough # 21--off work 2 days==-=please stop smoking!! Allergies/Adverse Reactions: Allergies No Known Allergies Allergy (Verified 04/24/17 12:07) Home Medications: Ambulatory Orders 1 [No Reported Medications] 04/24/17 Disposition Discussed With: Patient, Family
[2017-04-24 12:40] LABS: FLU INTERNAL QC INTERNAL QC VALID; RAPID FLU A NEGATIVE (NEGATIVE); RAPID FLU B NEGATIVE (NEGATIVE)
== END 2017-04-24 12:50 | disposition home or self-care (01) ==
LOC: ED 11:58
DX: J01.80 Other acute sinusitis (principal); F17.210 Nicotine dependence, cigarettes, uncomplicated
CPT/HCPCS: 87651; 87804; 87880; 99283

== ENCOUNTER 2017-08-05 16:28 | Outpatient (CLI) | payer OTHER ==
[2013-01-12 20:47] VITALS: TEMP 96.8
== END 2017-08-05 16:29 | disposition home or self-care (01) ==
LOC: LAB 16:28
PROVIDERS: ATTEND Family Medicine
DX: R30.0 Dysuria (principal); N89.8 Other specified noninflammatory disorders of vagina
CPT/HCPCS: 81001; 87800

== ENCOUNTER 2018-03-10 15:59 | Emergency (ER) ==
[2018-03-10 16:01] VITALS: BP 118/82; TEMP 97; BMI 19.0
--- NOTE | 2018-03-10 16:22 | ED.PDOC ---
General ED Provider: Dr. HAWA ANDRADE Chief Complaint: Sore Throat Stated Complaint: sore throat Time Seen by Physician: 16:00 Mode of Arrival: Walk-In Information Source: Patient Exam Limitations: No limitations Primary Care Provider: HARJIT DICKENS Nursing and Triage Documentation Reviewed and Agree: Yes Does patient meet sepsis criteria?: No System Inflammatory Response Syndrome: Not Applicable Sepsis Protocol: For patient's 13 years and over: Temp is 96.8 and below OR 101 and greater Pulse >90 BPM Resp >20/minute Acutely Altered Mental Status Are patient's symptoms suggestive of a new infection, such as: -Pneumonia -Skin, Soft Tissue -Endocarditis -UTI -Bone, Joint Infection -Implantable Device -Acute Abdominal Infection -Wound Infection -Meningitis -Blood Stream Catheter Infection -Unknown EENT Complaint Exam - Throat Complaint/Exam Symptoms Are: Still present Timimg: Intermittent Initial Severity: Moderate Current Severity: Mild Aggravating: Reports: Eating Alleviating: Reports: None Associated Signs and Symptoms: Reports: Cough, Nasal congestion. Denies: Fever , Dysphagia, Drooling, Foreign body sensation, Chills, Wheezing, Hoarseness, Sinus discomfort, Difficulty breathing, Lethargy, Irritability, Decreased activity, Vomiting, Diarrhea, Decreased hearing, Ear drainage Uvula Midline: Yes Sania-tonsillar Fluctuence: No Scarlatinaform Rash Present: No Stridor Present: No Sinus Tenderness Present: No Tonsillar Hypertrophy Present: No Tonsillar Exudate Present: No Sania-tonsillar Swelling Present: No Adenopathy Present: No Splenomegaly Present: No Differential Diagnoses: Pharyngitis Review of Systems - Review Of Systems Constitutional: Reports: No symptoms Eyes: Reports: No symptoms Ears, Nose, Mouth, Throat: Reports: Throat pain Respiratory: Reports: No symptoms Cardiac: Reports: No symptoms GI: Reports: No symptoms : Reports: No symptoms Musculoskeletal: Reports: No symptoms Skin: Reports: No symptoms Neurological: Reports: No symptoms Endocrine: Reports: No symptoms Hematologic/Lymphatic: Reports: No symptoms All Other Systems: Reviewed and Negative Past Medical History - Past Medical History Previously Healthy: Yes Endocrine: Reports: None Cardiovascular: Reports: None Respiratory: Reports: None Hematological: Reports: None Gastrointestinal: Reports: None Genitourinary: Reports: None Neuro/Psych: Reports: Migraine Musculoskeletal: Reports: None Cancer: Reports: None Last Menstrual Period: february 18 - Surgical History General Surgical History: Reports: None - Family History Family History: Reports: Unknown - Social History Smoking Status: Current every day smoker, Heavy tobacco smoker Hx Substance Use: No Alcohol Screening: None Physical Exam - Physical Exam Appearance: Well-appearing, No pain distress, Well-nourished Eyes: [place], EOMI, Conjunctiva clear ENT: Erythema, Exudate Respiratory: Airway patent, Breath sounds clear, Breath sounds equal, Respirations nonlabored Cardiovascular: RRR, Pulses normal, No rub, No murmur GI/: Soft, Nontender, No masses, Bowel sounds normal, No Organomegaly Musculoskeletal: Normal strength, ROM intact, No edema, No calf tenderness Skin: Warm, Dry, Normal color Neurological: Sensation intact, Motor intact, Reflexes intact, Cranial nerves intact, Alert, Oriented Psychiatric: Affect appropriate, Mood appropriate Critical Care Note - Critical Care Note Total Time (mins): 0 Course - Course Vital Signs: Temp Pulse Resp BP Pulse Ox 03/10/18 15:59 97.0 F L 95 H 18 118/82 97 Departure - Departure Time of Disposition: 16:22 Disposition: HOME SELF-CARE Discharge Problem: Pharyngitis Qualifiers: Pharyngitis/tonsillitis etiology: unspecified etiology Qualified Code(s): J02.9 - Acute pharyngitis, unspecified Instructions: Pharyngitis (ED) Condition: Good Pt referred to PMD for follow-up: Yes IPMP verified?: No Allergies/Adverse Reactions: Allergies No Known Allergies Allergy (Verified 03/10/18 16:01) Home Medications: Ambulatory Orders 1 [No Reported Medications] 04/24/17
== END 2018-03-10 16:25 | disposition home or self-care (01) ==
LOC: ED 15:59
DX: J02.9 Acute pharyngitis, unspecified (principal); F17.210 Nicotine dependence, cigarettes, uncomplicated
CPT/HCPCS: 99283

== ENCOUNTER 2018-03-13 12:19 | Outpatient (CLI) ==
[2013-01-12 20:47] VITALS: TEMP 96.8
== END 2018-03-13 12:20 | disposition home or self-care (01) ==
LOC: LAB 12:19
PROVIDERS: ATTEND Nurse Practitioner Family
DX: Z11.3 Encounter for screening for infections with a predominantly sexual mode of transmission (principal); Z78.9 Other specified health status; Z00.00 Encounter for general adult medical examination without abnormal findings
CPT/HCPCS: 36415; 80053; 80061; 80074; 81001; 84443; 84703; 85025; 86592; 86631; 86695; 86696; 87389; 87800

== ENCOUNTER 2018-07-25 11:52 | Outpatient (CLI) ==
[2013-01-12 20:47] VITALS: TEMP 96.8
[2018-06-25 13:45] VITALS: BMI 19.2
== END 2018-07-25 11:53 | disposition home or self-care (01) ==
LOC: LAB 11:52
PROVIDERS: ATTEND Nurse Practitioner Family
DX: R79.89 Other specified abnormal findings of blood chemistry (principal)
CPT/HCPCS: 36415; 84439; 84443; 84481

== ENCOUNTER 2018-09-20 07:36 | Emergency (ER) ==
[2018-09-20 07:40] VITALS: BP 119/71; TEMP 97.9; BMI 22.8
[2018-09-20] MEDS ORDERED: NORCO 10-325 PO STA (07:56)
--- NOTE | 2018-09-20 07:59 | ED.PDOC ---
General ED Provider: Dr. HAWA ANDRADE Chief Complaint: Back Pain Stated Complaint: low back pain Time Seen by Physician: 07:45 (aakash present) Mode of Arrival: Wheelchair Information Source: Patient Exam Limitations: No limitations Primary Care Provider: HAJRIT DICKENS Nursing and Triage Documentation Reviewed and Agree: Yes Does patient meet sepsis criteria?: No If yes, has appropriate treatment been initiated?: No System Inflammatory Response Syndrome: Not Applicable Sepsis Protocol: For patient's 13 years and over: Temp is 96.8 and below OR 101 and greater Pulse >90 BPM Resp >20/minute Acutely Altered Mental Status Are patient's symptoms suggestive of a new infection, such as: -Pneumonia -Skin, Soft Tissue -Endocarditis -UTI -Bone, Joint Infection -Implantable Device -Acute Abdominal Infection -Wound Infection -Meningitis -Blood Stream Catheter Infection -Unknown Musculoskeletal Complaint Exam - Back Pain Complaint/Exam Mechanism of Injury: Reports: No known trauma Onset/Duration: this morning Symptoms Are: Still present Timing: Constant Episodes Lasting: Hours Initial Severity: Moderate Current Severity: Moderate Character: Reports: Aching Aggravating: Reports: None Alleviating: Reports: None Associated Signs and Symptoms: Denies: Swelling, Redness, Bruising, Fever, Weakness, Numbness, Tingling, Abdominal pain, Flank pain, Bladder incontinence, Bowel incontinence, Weight loss, Pain with weight bearing Related History: Reports: Similar episode TAD Risk Factors: Reports: None AAA Risk Factors: Reports: None Cauda Equina Risk Factors: Reports: None Epidural Abcess Risk Factors: Reports: None Focal Tenderness: No Paraspinal Muscle Tenderness: No Paraspinal Muscle Spasm: No Hip Motion Testing Pain: Right Negative, Left Negative Focal Weakness: Present: None Focal Sensory Loss: Present: None Differential Diagnoses: Strain, Sprain Review of Systems - Review Of Systems Constitutional: Reports: No symptoms Eyes: Reports: No symptoms Ears, Nose, Mouth, Throat: Reports: No symptoms Respiratory: Reports: No symptoms Cardiac: Reports: No symptoms GI: Reports: No symptoms : Reports: No symptoms Musculoskeletal: Reports: Back pain Skin: Reports: No symptoms Neurological: Reports: No symptoms Endocrine: Reports: No symptoms Hematologic/Lymphatic: Reports: No symptoms All Other Systems: Reviewed and Negative Past Medical History - Past Medical History Previously Healthy: Yes Endocrine: Reports: None Cardiovascular: Reports: None Respiratory: Reports: None Hematological: Reports: None Gastrointestinal: Reports: None Genitourinary: Reports: None Neuro/Psych: Reports: Migraine Musculoskeletal: Reports: None Cancer: Reports: None Last Menstrual Period: 20 WEEKS - Surgical History General Surgical History: Reports: None - Family History Family History: Reports: Unknown - Social History Smoking Status: Current every day smoker, Heavy tobacco smoker Hx Substance Use: No Alcohol Screening: None Physical Exam - Physical Exam Appearance: Well-appearing, No pain distress, Well-nourished Eyes: [place], EOMI, Conjunctiva clear ENT: Ears normal, Nose normal, Oropharynx normal Respiratory: Airway patent, Breath sounds clear, Breath sounds equal, Respirations nonlabored Cardiovascular: RRR, Pulses normal, No rub, No murmur GI/: Soft, Nontender, No masses, Bowel sounds normal, No Organomegaly Musculoskeletal: Normal strength, ROM intact, No edema, No calf tenderness Skin: Warm, Dry, Normal color Neurological: Sensation intact, Motor intact, Reflexes intact, Cranial nerves intact, Alert, Oriented Psychiatric: Affect appropriate, Mood appropriate Critical Care Note - Critical Care Note Total Time (mins): 0 Course - Course Orders, Labs, Meds: Orders Category Date Time Status Hydrocodone Bit/Acetaminophen [[place] 10-325] MEDS 09/20/18 07:56 Stat 1 tab PO ONCE STA Vital Signs: Temp Pulse Resp BP Pulse Ox 09/20/18 07:36 97.9 F 60 20 119/71 98 Departure - Departure Time of Disposition: 07:58 Disposition: HOME SELF-CARE Discharge Problem: Backache Instructions: Back Pain (ED), Acute Low Back Pain (ED) Condition: Good Pt referred to PMD for follow-up: Yes IPMP verified?: No Additional Instructions: Please call your Family Physician as soon as possible to schedule a follow-up appointment. Allergies/Adverse Reactions: Allergies No Known Allergies Allergy (Verified 09/20/18 07:40) Home Medications: Ambulatory Orders Vit Calc,Iron,Folic [ Vitamins] 1 each PO DAILY 09/20/18
== END 2018-09-20 08:19 | disposition home or self-care (01) ==
LOC: ED 07:36
DX: M54.5 Low back pain (principal); F17.210 Nicotine dependence, cigarettes, uncomplicated; Z3A.20 20 weeks gestation of pregnancy
CPT/HCPCS: 99282

== ENCOUNTER 2018-11-26 15:42 | Outpatient (CLI) ==
[2013-01-12 20:47] VITALS: TEMP 96.8
== END 2018-11-26 16:04 | disposition short-term general hospital (02) ==
LOC: AMBL 15:42
PROVIDERS: ATTEND Internal Medicine
DX: R56.9 Unspecified convulsions (principal); R41.0 Disorientation, unspecified; R11.2 Nausea with vomiting, unspecified; Z33.1 Pregnant state, incidental

== ENCOUNTER 2018-12-31 12:03 | Emergency (ER) ==
[2018-12-31 12:15] VITALS: BP 121/78; TEMP 98.1; BMI 21.9
--- NOTE | 2018-12-31 12:37 | ED.PDOC ---
General ED Provider: Dr. DANISH LARA-ER Chief Complaint: Non-specific Complaint Stated Complaint: carmenza got this place and its red---i just saw my obstetrician and gynaecologist Time Seen by Physician: 12:10 Mode of Arrival: Walk-In Information Source: Patient Exam Limitations: No limitations Primary Care Provider: HARJIT DICKENS Nursing and Triage Documentation Reviewed and Agree: Yes Does patient meet sepsis criteria?: No System Inflammatory Response Syndrome: Not Applicable Sepsis Protocol: For patient's 13 years and over: Temp is 96.8 and below OR 101 and greater Pulse >90 BPM Resp >20/minute Acutely Altered Mental Status Are patient's symptoms suggestive of a new infection, such as: -Pneumonia -Skin, Soft Tissue -Endocarditis -UTI -Bone, Joint Infection -Implantable Device -Acute Abdominal Infection -Wound Infection -Meningitis -Blood Stream Catheter Infection -Unknown Skin Complaint Exam - Skin/Soft Tissue Complaint/Exam Onset/Duration: 2 days Symptoms Are: Still present Timing: Constant Initial Severity: Mild Current Severity: Moderate Location: right suprapubic area Character: Reports: Redness, Swelling, Raised, Painful Aggravating: Reports: Touch Alleviating: Reports: None Associated Signs and Symptoms: Reports: Tenderness. Denies: Fever, Chills, Itching, Drainage, Bruising, Red streaks, Joint swelling Related Surgical History: Reports: None Recent Exposure to Others w/Similar Symptoms: No Skin Findings: Present: Erythema, Other Joint Tenderness Present: No Differential Diagnoses: Abscess, Infection Review of Systems - Review Of Systems Constitutional: Reports: No symptoms Eyes: Reports: No symptoms Ears, Nose, Mouth, Throat: Reports: No symptoms Respiratory: Reports: No symptoms Cardiac: Reports: No symptoms GI: Reports: No symptoms : Reports: No symptoms Musculoskeletal: Reports: No symptoms Skin: Reports: Lumps Neurological: Reports: No symptoms Endocrine: Reports: No symptoms Hematologic/Lymphatic: Reports: No symptoms All Other Systems: Reviewed and Negative Past Medical History - Past Medical History Previously Healthy: Yes Endocrine: Reports: None Cardiovascular: Reports: None Respiratory: Reports: None Hematological: Reports: None Gastrointestinal: Reports: None Genitourinary: Reports: None Neuro/Psych: Reports: Migraine Musculoskeletal: Reports: None Cancer: Reports: None Last Menstrual Period: light bleeding for a month - Surgical History General Surgical History: Reports: None - Family History Family History: Reports: Unknown - Social History Smoking Status: Current every day smoker, Light tobacco smoker Hx Substance Use: No Alcohol Screening: None - Immunizations Tetanus Shot up to Date: (unknown) Physical Exam - Physical Exam Appearance: Well-appearing, No pain distress, Well-nourished Pain Distress: Mild Eyes: [place], EOMI, Conjunctiva clear ENT: Ears normal, Nose normal, Oropharynx normal Neck: Supple Respiratory: Airway patent Cardiovascular: RRR, Pulses normal, No rub, No murmur GI/: Soft, Bowel sounds normal, No Organomegaly, Tender, Mass Musculoskeletal: Normal strength, ROM intact, No edema, No calf tenderness Skin: Warm, Dry, Normal color Neurological: Sensation intact, Motor intact, Reflexes intact, Cranial nerves intact, Alert, Oriented Psychiatric: Affect appropriate, Mood appropriate Critical Care Note - Critical Care Note Total Time (mins): 0 Course - Course Vital Signs: Temp Pulse Resp BP Pulse Ox 12/31/18 12:05 98.1 F 86 20 121/78 97 Departure - Departure Time of Disposition: 12:37 Disposition: HOME SELF-CARE Discharge Problem: Abscess Instructions: Abscess (ED) Condition: Good Pt referred to PMD for follow-up: Yes IPMP verified?: No Additional Instructions: call your obstetrician and gynaecologist tomorrow to get into see your obstetrician and gynaecologist tomorrow---heat --tylenol for pain Allergies/Adverse Reactions: Allergies No Known Allergies Allergy (Verified 12/31/18 12:15) Home Medications: Ambulatory Orders Medroxyprogesterone Acetate [Depo-Subq Provera 104] 104 mg SQ DIRECTED Disposition Discussed With: Patient
== END 2018-12-31 12:47 | disposition home or self-care (01) ==
LOC: ED 12:03
DX: L02.818 Cutaneous abscess of other sites (principal); F17.210 Nicotine dependence, cigarettes, uncomplicated
CPT/HCPCS: 99282